=== PATIENT | female | born 1980 | race Caucasian/White ===

== ENCOUNTER 2021-07-28 15:35 | Emergency (ER) | payer OTHER ==
[2021-07-28 16:24] LABS: Urine Blood Trace-intact (Negative); Urine Glucose Negative (Negative); Urine Protein Negative (Negative); Urine Specific Gravity >=1.030 (1.005-1.030)
[2021-07-28 16:25] LABS: Absolute Lymphocytes (CBC) 1.9 K/uL (0.7-4.9); Basophils % 0.7 % (0-1.3); Hematocrit 40.6 % (36.0-45.0); Lymphocytes % 20.1 % (15.3-44.8); MPV 7.5 fL (7.6-11.3); RBC Red Blood Cell Count 4.88 M/uL (3.86-4.86)
[2021-07-28 16:40] LABS: Urine Bacteria <20 /HPF (<20); Urine RBC NONE SEEN /HPF (NONE SEEN)
[2021-07-28 16:40] LABS: ALT/SGPT 23 U/L (12-78); AST/SGOT 14 U/L (15-37); Albumin 3.3 g/dL (3.4-5.0); Alkaline Phosphatase 146 U/L (45-117); BUN Blood Urea Nitrogen 14 mg/dL (7-18); Bicarbonate 24 mmol/L (21-32); Bilirubin Direct < 0.1 mg/dL (0-0.2); Bilirubin Total 0.2 mg/dL (0.2-1.0); Glucose Level 128 mg/dL (74-106); Lipase 78 U/L (73-393); Protein, Total 7.4 g/dL (6.4-8.2); Sodium Level 141 mmol/L (136-145)
[2021-07-28] MEDS ORDERED: NA CHLORIDE 0.9% 1,000 ML ONE (17:03)
[2021-07-28] MEDS ORDERED: ONDANSETRON 4 MG/2 ML VIAL ONE (17:03)
[2021-07-28] MEDS ORDERED: FAMOTIDINE 20 MG/2 ML VIAL IV ONE (17:03)
--- NOTE | 2021-07-28 17:18 | RAD REPORT ---
EXAM DESCRIPTION: US - Abdomen Exam Limited - 07/28/2021 4:55 pm CLINICAL HISTORY: RUQ pain COMPARISON: ABDOMINAL EXAM LIMITED dated 09/06/2014 FINDINGS: No gallstones, sludge or other abnormalities within the gallbladder lumen. There is no wal l thickening or pericholecystic fluid. No common duct stone or biliary tree dilatation identified. IMPRESSION: Normal gallbladder and biliary tree ultrasound.
--- NOTE | 2021-07-28 18:53 | RAD REPORT ---
EXAM DESCRIPTION: CT - Abdomen Pelvis W Contrast - 07/28/2021 6:31 pm CLINICAL HISTORY: ABD PAIN COMPARISON: No comparisons TECHNIQUE: Biphasic, helical CT imaging of the abdomen and pelvis was performed following 100 ml non -ionic IV contrast. No oral contrast. All CT scans are performed using dose optimization technique as appropriate and may include automated exposure control or mA/KV adjustment according to patient size. FINDINGS: No suspicious findings in the lung bases. The liver, spleen, and pancreas show no suspicious findings. Gallbladder is tightly contracted. Galls tones can be occult on CT imaging. No biliary tree dilatation. Symmetric renal function is seen with no hydronephrosis or suspicious renal mass. No pyelonephritis o r acute parenchymal process. No bladder abnormalities. No adrenal abnormalities. Uterus and ovaries w ithin normal limits for patient age. No dilated bowel loops or bowel wall thickening. Appendix is normal. No free air, free fluid or infla mmatory stranding. No hernia, mass or bulky lymphadenopathy. No suspicious bony findings. IMPRESSION: Contrast enhanced CT abdomen and pelvis showing no significant or suspicious finding.
--- NOTE | 2021-07-28 19:13 | ER ---
Nurse's Notes [facility] Name: Maritza Pineda Age: 40 yrs Sex: Female : 1980 Arrival Date: 07/28/2021 Time: 15:37 Bed 13 Private MD: Maurice Dumont Diagnosis: Upper abdominal pain, unspecified Presentation: 07/28 15:52 Chief complaint: Patient states: right flank pain radiating to abd, started about an iw hour and half ago, +n/v belching. Coronavirus screen: At this time, the client does not indicate any symptoms associated with coronavirus-19. Ebola Screen: Patient negative for fever greater than or equal to 101.5 degrees Fahrenheit, and additional compatible Ebola Virus Disease symptoms Patient denies exposure to infectious person. Patient denies travel to an Ebola-affected area in the 21 days before illness onset. No symptoms or risks identified at this time. Initial Sepsis Screen: Does the patient meet any 2 criteria? No. Patient's initial sepsis screen is negative. Does the patient have a suspected source of infection? No. Patient's initial sepsis screen is negative. Risk Assessment: Do you want to hurt yourself or someone else? Patient reports no desire to harm self or others. Onset of symptoms was July 28, 2021. 15:52 Method Of Arrival: Ambulatory iw 15:52 Acuity: LENCHO 3 iw Historical: - Allergies: 15:54 No Known Allergies; iw - Home Meds: 15:54 sertraline oral [Active]; iw - PMHx: 15:54 None; iw - PSHx: 15:54 None; iw - Immunization history:: Client reports receiving the 2nd dose of the Covid vaccine. - Social history:: Smoking status: Patient denies any tobacco usage or history of. Screenin:42 Abuse screen: Denies threats or abuse. Nutritional screening: No deficits noted. tw2 Tuberculosis screening: No symptoms or risk factors identified. Fall Risk None identified. Assessment: 15:41 General: Appears in no apparent distress. uncomfortable, obese, well groomed, Behavior tw2 is calm, cooperative, appropriate for age. Pain: Complains of pain in right upper quadrant and right lower quadrant Pain radiates to back. Neuro: Level of Consciousness is awake, alert, obeys commands. Cardiovascular: Capillary refill < 3 seconds Patient's skin is warm and dry. Respiratory: Airway is patent Respiratory effort is even, unlabored, Respiratory pattern is regular, symmetrical. GI: n/a Abd is soft and non tender X 4 quads. Reports lower abdominal pain, upper abdominal pain, "that comes in waves". Derm: No signs and/or symptoms reported regarding the dermatologic system. Musculoskeletal: Range of motion: intact in all extremities. 16:47 Reassessment: US at bedside at this time. tw2 17:46 Reassessment: Patient appears in no apparent distress at this time. No changes from tw2 previously documented assessment. Patient and/or family updated on plan of care and expected duration. Pain level reassessed. Patient is alert, oriented x 3, equal unlabored respirations, skin warm/dry/pink. Vital Signs: 15:52 Pulse 99; Resp 18; Temp 98.1; Pulse Ox 98% on R/A; Weight 165.56 kg; Height 5 ft. 6 in. iw (167.64 cm); Pain 5/10; 16:23 BP 136 / 83; tw2 16:42 BP 115 / 66; Pulse 85; Resp 17; Pulse Ox 98% on R/A; tw2 17:47 BP 106 / 55; Pulse 75; Resp 17; Pulse Ox 100% on R/A; tw2 18:48 BP 129 / 78; Pulse 72; Resp 19; Pulse Ox 100% on R/A; tw2 15:52 Body Mass Index 58.91 (165.56 kg, 167.64 cm) iw ED Course: 15:37 Patient arrived in ED. as 15:37 Maurice Dumont DO is Private Physician. as 15:41 Bed in low position. Call light in reach. Adult w/ patient. Pulse ox on. NIBP on. tw2 15:47 Ronn Flores PA is PHCP. cp 15:47 Spencer Gutierrez MD is Attending Physician. cp 15:54 Triage completed. iw 15:54 Arm band placed on. iw 16:01 Abbey Vásquez RN is Primary Nurse. tw2 16:24 Missed attempt(s): 20 gauge in right antecubital area. blood collected, infiltration tw2 noted after flush. Bleeding controlled, band aid applied, catheter tip intact. 16:36 Inserted saline lock: 20 gauge in left antecubital area, using aseptic technique. tw2 16:55 US Abdomen Limited: liver/gallbladder In Process Unspecified. EDMS 18:31 CT Abd/Pelvis - IV Contrast Only In Process Unspecified. EDMS 19:13 Maurice Dumont DO is Referral Physician. cp 19:28 IV discontinued, intact, bleeding controlled, No redness/swelling at site. Pressure dc2 dressing applied. 19:30 Primary Nurse role handed off by Abbey Vásquez RN mw2 19:36 No provider procedures requiring assistance completed. dc2 Administered Medications: 16:36 Drug: NS 0.9% 500 ml Route: IV; Rate: bolus; Site: left antecubital; tw2 18:15 Follow up: Response: No adverse reaction; IV Status: Completed infusion; IV Intake: tw2 500ml 16:36 Drug: Zofran (Ondansetron) 4 mg Route: IVP; Site: left antecubital; tw2 17:47 Follow up: Response: No adverse reaction; Nausea is decreased tw2 16:38 Drug: Pepcid (famotidine) 20 mg Route: IVP; Site: left antecubital; tw2 17:47 Follow up: Response: No adverse reaction tw2 18:15 Drug: NS 0.9% 500 ml Route: IV; Rate: 125 ml/hr; Site: left antecubital; tw2 19:25 Follow up: IV Status: Completed infusion; IV Intake: 500ml dc2 Intake: 18:15 IV: 500ml; Total: 500ml. tw2 19:25 IV: 500ml; Total: 1000ml. dc2 Outcome: 19:13 Discharge ordered by MD. cp 19:30 Discharged to home ambulatory. dc2 19:30 Condition: stable 19:30 Discharge instructions given to Instructed on discharge instructions, follow up and referral plans. Demonstrated understanding of instructions, follow-up care, Prescriptions given X 2. 19:39 Patient left the ED. dc2 Signatures: Dispatcher [employer] Carrie Quinteros Irene RN Ronn Alvarado PA PA cp Abbey Vásquez RN RN tw2 Alejo Quevedo mw2 Trinity Maddox RN RN dc2 Corrections: (The following items were deleted from the chart) 16:47 16:42 BP 115 / 115; Pulse 85bpm; Resp 17bpm; Pulse Ox 98% RA; tw2 tw2
--- NOTE | 2021-07-28 19:14 | EDPHYS ---
Physician Documentation [facility] Name: Maritza Pineda Age: 40 yrs Sex: Female : 1980 Arrival Date: 07/28/2021 Time: 15:37 Bed 13 Private MD: Tim [facility] ED Physician Spencer Gutierrez HPI: 07/28 16:00 This 40 yrs old Female presents to ER via Ambulatory with complaints of cp Possible Kidney Stone, Nausea/Vomiting. 16:00 The patient presents with abdominal pain in the right upper quadrant. Onset: The cp symptoms/episode began/occurred today, 1.5 hour(s) ago. The symptoms radiate to right back. Associated signs and symptoms: Pertinent positives: nausea, Pertinent negatives: blood in stools, chest pain, constipation, diarrhea, active vomiting. The symptoms are described as constant. Modifying factors: the symptoms are aggravated by pressure. Historical: - Allergies: 15:54 No Known Allergies; iw - Home Meds: 15:54 sertraline oral [Active]; iw - PMHx: 15:54 None; iw - PSHx: 15:54 None; iw - Immunization history:: Client reports receiving the 2nd dose of the Covid vaccine. - Social history:: Smoking status: Patient denies any tobacco usage or history of. ROS: 16:05 Eyes: Negative for injury, pain, redness, and discharge. cp 16:05 Constitutional: Negative for body aches, chills, fever, poor PO intake. 16:05 ENT: Negative for ear pain, sore throat, difficulty swallowing, difficulty handling secretions. 16:05 Cardiovascular: Negative for chest pain. 16:05 Respiratory: Negative for cough, shortness of breath, wheezing. 16:05 Abdomen/GI: Positive for abdominal pain, nausea, Negative for vomiting, diarrhea, constipation. 16:05 Back: Positive for radiated pain, of the right mid back. 16:05 : Negative for urinary symptoms. 16:05 Skin: Negative for rash. 16:05 All other systems are negative. Exam: 16:10 Constitutional: The patient appears in no acute distress, alert, awake, cp non-diaphoretic, non-toxic, well developed, well nourished, obese. 16:10 Head/Face: Normocephalic, atraumatic. cp 16:10 Eyes: Periorbital structures: appear normal, Conjunctiva: normal, no exudate, no injection, Sclera: no appreciated abnormality, Lids and lashes: appear normal, bilaterally. 16:10 ENT: External ear(s): are unremarkable, Nose: is normal, Mouth: Lips: moist, Oral mucosa: moist, Posterior pharynx: Airway: no evidence of obstruction, patent. 16:10 Neck: ROM/movement: is normal, is supple, without pain, no range of motions limitations, no nuchal rigidity. 16:10 Chest/axilla: Inspection: normal. 16:10 Cardiovascular: Rate: normal. 16:10 Respiratory: the patient does not display signs of respiratory distress, Respirations: normal, no use of accessory muscles, no retractions, labored breathing, is not present, Breath sounds: are clear throughout, no decreased breath sounds, no stridor, no wheezing. 16:10 Abdomen/GI: Inspection: obese Bowel sounds: active, all quadrants, Palpation: soft, in all quadrants, mild abdominal tenderness, in the right upper quadrant, rebound tenderness, is not appreciated, voluntary guarding, is not appreciated, involuntary guarding, is not appreciated. 16:10 Back: pain, that is mild, of the right mid back, ROM is normal. 16:10 Skin: no rash present. 16:10 Neuro: Orientation: to person, place \T\ time. Mentation: is normal, Motor: moves all fours, strength is normal, Sensation: is normal. Vital Signs: 15:52 Pulse 99; Resp 18; Temp 98.1; Pulse Ox 98% on R/A; Weight 165.56 kg; Height 5 ft. 6 in. iw (167.64 cm); Pain 5/10; 16:23 BP 136 / 83; tw2 16:42 BP 115 / 66; Pulse 85; Resp 17; Pulse Ox 98% on R/A; tw2 17:47 BP 106 / 55; Pulse 75; Resp 17; Pulse Ox 100% on R/A; tw2 18:48 BP 129 / 78; Pulse 72; Resp 19; Pulse Ox 100% on R/A; tw2 15:52 Body Mass Index 58.91 (165.56 kg, 167.64 cm) iw MDM: 15:47 Patient medically screened. cp 19:12 Data reviewed: vital signs, nurses notes, lab test result(s), radiologic studies, CT cp scan, ultrasound. 19:12 Counseling: I had a detailed discussion with the patient and/or guardian regarding: the cp historical points, exam findings, and any diagnostic results supporting the discharge/admit diagnosis, lab results, radiology results, to return to the emergency department if symptoms worsen or persist or if there are any questions or concerns that arise at home. Response to treatment: the patient's symptoms have markedly improved after treatment, and as a result, I will discharge patient. Special discussion: Based on the patient's Hx, exam, and Dx evaluation, there is no indication for emergent surgery or inpatient Tx. It is understood by the patient/guardian that if the Sx's persist or worsen they need to return immediately for re-evaluation. 07/28 15:54 Order name: Urine Microscopic Only 07/28 15:54 Order name: Basic Metabolic Panel; Complete Time: 16:47 cp 07/28 16:47 Interpretation: Normal except: CL 109; GLUC 128; GFR 78. 07/28 15:54 Order name: CBC with Diff; Complete Time: 16:47 07/28 16:47 Interpretation: Normal except: RBC 4.88; MPV 7.5. 07/28 15:54 Order name: Hepatic Function; Complete Time: 16:47 cp 07/28 16:48 Interpretation: Normal except: AST 14; ALK 146; ALB 3.3; GLOB 4.1; A/G 0.8. 07/28 15:54 Order name: Lipase; Complete Time: 16:47 cp 07/28 15:54 Order name: Urine Microscopic Only; Complete Time: 16:47 EDMS 07/28 15:54 Order name: US Abdomen Limited: liver/gallbladder; Complete Time: 17:35 cp 07/28 19:03 Interpretation: Report reviewed. 07/28 16:23 Order name: Urine Dipstick-Ancillary; Complete Time: 16:47 EDMS 07/28 16:48 Interpretation: Normal except: UBLD Trace-intact. 07/28 17:36 Order name: CT Abd/Pelvis - IV Contrast Only; Complete Time: 19:02 cp 07/28 19:02 Interpretation: Report reviewed. 07/28 17:49 Order name: Test Urine - POC; Complete Time: 19:02 sp 07/28 15:54 Order name: Urine Dipstick-Ancillary (obtain specimen); Complete Time: 16:23 cp 07/28 15:54 Order name: Urine Test (obtain specimen); Complete Time: 16:23 cp 07/28 15:54 Order name: IV Saline Lock; Complete Time: 16:23 cp 07/28 15:54 Order name: Labs collected and sent; Complete Time: 16:23 cp Administered Medications: 16:36 Drug: NS 0.9% 500 ml Route: IV; Rate: bolus; Site: left antecubital; tw2 18:15 Follow up: Response: No adverse reaction; IV Status: Completed infusion; IV Intake: tw2 500ml 16:36 Drug: Zofran (Ondansetron) 4 mg Route: IVP; Site: left antecubital; tw2 17:47 Follow up: Response: No adverse reaction; Nausea is decreased tw2 16:38 Drug: Pepcid (famotidine) 20 mg Route: IVP; Site: left antecubital; tw2 17:47 Follow up: Response: No adverse reaction tw2 18:15 Drug: NS 0.9% 500 ml Route: IV; Rate: 125 ml/hr; Site: left antecubital; tw2 19:25 Follow up: IV Status: Completed infusion; IV Intake: 500ml dc2 Disposition Summary: 07/28/21 19:13 Discharge Ordered Location: Home cp Problem: new cp Symptoms: have improved cp Condition: Stable cp Diagnosis - Upper abdominal pain, unspecified cp Followup: cp - With: Maurice Dumont, DO - When: 2 - 3 days - Reason: Recheck today's complaints Discharge Instructions: - Abdominal Pain, Adult cp - Discharge Summary Sheet tw2 Forms: - Medication Reconciliation Form cp - Thank You Letter cp - Work release form tw2 - Antibiotic Education cp - Prescription Opioid Use cp Prescriptions: - Pepcid 20 mg Oral Tablet - take 1 tablet by ORAL route every 12 hours for 10 days; 20 tablet; Refills: 0, cp Product Selection Permitted - Zofran 4 mg Oral Tablet - take 1 tablet by ORAL route every 12 hours As needed; 20 tablet; Refills: 0, cp Product Selection Permitted Addendum: 07/30/2021 23:21 Co-signature as Attending Physician, Spencer Gutierrez MD I agree with the assessment and k dr plan of care. Signatures: Dispatcher [employer] EDMS Spencer Gutierrez MD MD kdr Jeannie Roper RN RN iw Ronn Flores PA PA cp Abbey Vásquez RN RN tw2 Tan, Trinity SCOTT dc2 Corrections: (The following items were deleted from the chart) 07/29 18:25 07/28 18:00 This 40 yrs old Female presents to ER via Ambulatory with cp complaints of Possible Kidney Stone, Nausea/Vomiting. cp 07/29 18:07/28 18:05 Constitutional: Negative for body aches, chills, fever, poor PO intake, cp cp 07/29 18:07/28 18:05 Cardiovascular: Negative for chest pain, cp cp 07/29 18:07/28 18:05 Respiratory: Negative for cough, shortness of breath, wheezing, cp cp 07/29 18:07/28 18:05 Abdomen/GI: Positive for abdominal pain, nausea, Negative for vomiting, cp diarrhea, constipation, cp 07/29 18:07/28 18:05 Eyes: Negative for injury, pain, redness, and discharge, cp cp 07/29 18:07/28 18:05 ENT: Negative for ear pain, sore throat, difficulty swallowing, difficulty cp handling secretions, cp 07/29 18:07/28 18:05 Back: Positive for radiated pain, of the right mid back, cp cp 07/29 18:07/28 18:05 : Negative for urinary symptoms, cp cp 07/29 18:07/28 18:05 Skin: Negative for rash, cp cp 07/29 18:07/28 18:05 All other systems are negative, cp cp
[2021-07-28 19:58] VITALS: TEMP 98.1
[2021-07-28 20:01] VITALS: O2SAT 100
[2021-07-28 20:03] VITALS: BP 129/78
== END 2021-07-28 19:39 | disposition home or self-care (01) ==
LOC: ER 15:35
DX: R10.11 Right upper quadrant pain (principal)
CPT/HCPCS: 96361; 85025; 80048; 36415; 81025; 80076; 83690; 74177; 76705; 96375; 96374; 99284; Q9967; J7030; J2405; 81003; 81015

== ENCOUNTER 2021-10-02 07:07 | Day surgery (SDC) | payer OTHER ==
[2021-10-02 07:24] LABS: Specific Gravity 1.025 (1.005-1.030)
[2021-10-02] MEDS: Ringers Lactate 1,000 ML IV ONE ×2 (07:30→08:42)
[2021-10-02] MEDS ORDERED: propofoL 200 MG/20 ML VIAL IV ONE ×5 (08:34→09:16)
[2021-10-02] MEDS ORDERED: LIDOCAINE 1% MPF 5 ML VIAL ONE (08:42)
--- NOTE | 2021-10-02 09:15 | ENDO RPT ---
[address], [address] EGD PROCEDURE REPORT EXAM DATE: 10/02/2021 PATIENT NAME: Maritza Pineda MR#: [id number] BIRTHDATE: 1980 ATTENDING: Miguel A [address] STATUS: outpatient [id number] ARMOR CREWMAN: Rosalina Connor RN and Nannette Arriaza INDICATIONS: The patient is a 41 yr old Female here for an EGD due to right upper quadrant abdominal pain, mid epigastric abdominal pain, nausea and vomiting, bloating, belching, dyspepsia, GERD, heartburn, and chronic unexplained diarrhea PROCEDURE PERFORMED: EGD with biopsy MEDICATIONS: Per Anesthesia. TOPICAL ANESTHETIC: none CONSENT: The patient understands the risks and benefits of the procedure and understands that these risks include, but are not limited to: sedation, allergic reaction, infection, perforation and/or bleeding. Alternative means of evaluation and treatment include, among others: physical exam, x-rays, and/or surgical intervention. The patient elects to proceed with this endoscopic procedure. DESCRIPTION OF PROCEDURE: During intra-op preparation period all mechanical medical equipment was checked for proper function. Hand hygiene and appropriate measures for infection prevention was taken. Procedure, possible complications, and alternatives including but not limited to the possibility of bleeding, perforation, tear, infection, sepsis, need for surgery, need for blood transfusion, and anesthesia related complications were explained to the patient. After the risks, benefits and alternatives of the procedure were thoroughly explained, Informed consent was verified, confirmed and timeout was successfully executed by the treatment team. The patient was placed in the left lateral position. The patient was anesthetized with topical anesthesia. Through the anesthetized oropharyngeal area, the scope was passed without any difficulty. The [id number] ([id number]) endoscope was introduced through the mouth and advanced to the third portion of the duodenum. Retroflexed views revealed a small hiatal hernia. The gastroscope was then slowly withdrawn and removed. A small hiatal hernia was found Mild gastritis was found in the body and the antrum of the stomach. Multiple biopsies were obtained and sent to pathology. A 4 mm ulcer with central dark heme was found in the body of the stomach. Small bowel biopsies obtained with history of unexplained diarrhea. ADVERSE EVENTS: There were no complications. IMPRESSIONS: 1. Small hiatal hernia 2. Mild gastritis in the body and the antrum of the stomach, s/p biopsies 3. 4 mm ulcer with central dark heme in the body of the stomach 4. Small bowel biopsies obtained with history of unexplained diarrhea RECOMMENDATIONS: 1. await biopsy results 2. acid suppression therapy REPEAT EXAM: Miguel A Hurd Dr eSigned: Miguel A Hurd Dr 10/02/2021 9:14 AM cc: Maurice Dumont CPT CODES: ICD9 CODES: PATIENT NAME: Maritza Pineda MR#: [id number]
--- NOTE | 2021-10-02 09:46 | ENDO RPT ---
[address], [address] COLONOSCOPY PROCEDURE REPORT EXAM DATE: 10/02/2021 PATIENT NAME: Maritza Pineda MR #: [id number] BIRTHDATE: 1980 ATTENDING: Miguel A [address] STATUS: outpatient MANAGER SIGN: Rosalina Connor RN and Nannette Arriaza INDICATIONS: The patient is a 41 yr old Female here for a colonoscopy due to hematochezia, RLQ/LLQ abdominal pain, unexplained chronic diarrhea, family history of colon cancer - mother, and family history of colon polyps - sister PROCEDURE PERFORMED: Colonoscopy with biopsy - cold polypectomy and Colonoscopy with snare polypectomy MEDICATIONS: Per Anesthesia. ESTIMATED BLOOD LOSS: Minimal CONSENT: The patient understands the risks and benefits of the procedure and understands that these risks include, but are not limited to: sedation, allergic reaction, infection, perforation and/or bleeding. Alternative means of evaluation and treatment include, among others: physical exam, x-rays, and/or surgical intervention. The patient elects to proceed with this endoscopic procedure. DESCRIPTION OF PROCEDURE: During intra-op preparation period all mechanical medical equipment was checked for proper function. Hand hygiene and appropriate measures for infection prevention was taken. Procedure, possible complications, alternatives including, but not limited to possibility of bleeding, perforation, tear, infection, sepsis, need for surgery, need for blood transfusion, were explained to the patient. After the risks, benefits and alternatives of the procedure were thoroughly explained, Informed consent was verified, confirmed and timeout was successfully executed by the treatment team. The patient was placed in the left lateral position. A digital rectal exam was performed and revealed no abnormalities of the rectum. After appropriate level of anesthesia, the scope was passed. The [id number] ([id number]) endoscope was introduced through the anus and advanced to the terminal ileum which was intubated for a short distance. The quality of the prep was good. The instrument was then slowly withdrawn as the colon was fully examined. Scope withdrawal time was 8 minutes. COLON FINDINGS: A diminutive smooth flat polyp was found in the sigmoid colon. A polypectomy was performed with cold forceps. A smooth sessile polyp measuring 6 mm in size was found in the rectum. A polypectomy was performed with a cold snare. Mild diverticulosis was noted in the sigmoid colon. No bleeding was noted from the diverticulosis. Small internal hemorrhoids were found. Retroflexed views revealed small hemorrhoids. The scope was then completely withdrawn from the patient and the procedure terminated. ADVERSE EVENTS: There were no complications. IMPRESSIONS: 1. Diminutive flat polyp in the sigmoid colon; polypectomy was performed with cold forceps 2. 6 mm sessile polyp in the rectum; polypectomy was performed with a cold snare 3. Mild diverticulosis in the sigmoid colon 4. Small internal hemorrhoids 5. Intubation to terminal ileum 6. Family history of colon cancer - mother 7. Family history of colon polyps - sister RECOMMENDATIONS: 1. await biopsy results 2. avoid NSAIDS for 2 weeks RECALL: Return in 3 year(s) for Colonoscopy. Miguel A [address] Dr eSigned: Miguel A Hurd Dr 10/02/2021 9:46 AM cc: Maurice Dumont CPT CODES: ICD9 CODES: 1. 211.3 Benign neoplasm of colon 2. 569.0 Anal and rectal polyp PATIENT NAME: Maritza Pineda MR#: [id number]
[2021-10-02 10:11] VITALS: BP 136/58; TEMP 97.4; O2SAT 98
== END 2021-10-02 10:15 | disposition home or self-care (01) ==
LOC: OR 07:07
PROVIDERS: ATTEND Internal Medicine Gastroenterology
PROC: 0DBN8ZX Excision of Sigmoid Colon, Via Natural or Artificial Opening Endoscopic, Diagnostic (ICD-10-PCS; principal; 2021-10-02 08:45)
PROC: 0DBP8ZX Excision of Rectum, Via Natural or Artificial Opening Endoscopic, Diagnostic (ICD-10-PCS; 2021-10-02 08:45)
DX: K92.1 Melena (principal); R10.32 Left lower quadrant pain; R10.31 Right lower quadrant pain; R19.7 Diarrhea, unspecified; Z80.0 Family history of malignant neoplasm of digestive organs; Z83.71 Family history of colonic polyps; Z20.822 Contact with and (suspected) exposure to COVID-19; D12.7 Benign neoplasm of rectosigmoid junction; K63.5 Polyp of colon; K57.30 Diverticulosis of large intestine without perforation or abscess without bleeding; K64.8 Other hemorrhoids
CPT/HCPCS: 88312; 81025; 88305; 45380; 45385; U0003; J2704 ×5; J7120